=== PATIENT | male | born 1960 | race Caucasian/White ===

== ENCOUNTER → 2019-10-13 | Outpatient (CLI) | payer BC ==
--- NOTE | 2019-10-13 14:24 | Diagnostic Imaging Report ---
Indication: Abnormal parathyroid hormone Technique: IV administration 19.5 mCi 99m technetium sestamibi 15 minute and three-hour delayed images were obtained over the neck Comparison: none Findings: At 15 minutes, normal thyroid distribution of activity is demonstrated. Activity is also seen in the salivary glands and myocardium. At 3 hours, tracer is largely washout of the thyroid, with only minimal residual in a similar distribution to the 15 minute exam. No focal high intensity retention of tracer to suggest parathyroid adenoma is demonstrated Impression: Negative parathyroid scan. Parathyroid adenoma is not demonstrated
== END | disposition home or self-care (01) ==
LOC: NUM 08:55
DX: R94.6 Abnormal results of thyroid function studies (principal)
CPT/HCPCS: 78070; A4641